=== PATIENT | female | born 1985 | race African-American/Black ===

== ENCOUNTER 2018-07-27 16:21 | Emergency (ER) | payer OTHER ==
[~2018-07-27] VITALS: Ht 167.6 cm; Wt 80.0 kg
[2018-07-27] MEDS ORDERED: IBUPROFEN 400MG TABLET PO ONE (19:00)
[2018-07-27 19:14] VITALS: BP 112/71
[2018-07-27 20:20] LABS: BASOPHILS % 0.7 % (0.0-2.0); EOSINOPHILS % 1.1 % (0.0-5.0); HEMATOCRIT. 38.2 % (36.0-48.0); HEMOGLOBIN. 12.7 g/dL (12.0-16.0); LYMPHOCYTES % 38.4 % (20.0-50.0); MEAN CORPUSCULAR HEMOGLOBIN 31.8 pg (28.0-32.0); MEAN CORPUSCULAR VOLUME 95.5 fL (81.0-99.0); MEAN PLATELET VOLUME 9.2 fl (7.4-10.4); MONOCYTES % 5.4 % (2.0-8.0); NEUTROPHILS % 54.4 % (40.0-76.0); PLATELET 253 x1000/uL (130-400)
[2018-07-27 20:24] LABS: CHLORIDE 107 mEq/L (98-107)
[2018-07-27 20:29] LABS: HCG SCREEN NEGATIVE
== END 2018-07-27 22:01 | disposition home or self-care (01) ==
LOC: ER 16:21
DX: M54.12 Radiculopathy, cervical region (principal); M25.511 Pain in right shoulder; Z98.51 Tubal ligation status; Z98.890 Other specified postprocedural states
CPT/HCPCS: 36415; 71101; 73000; 80053; 84703; 85025; 85651; 86140; 99285